=== PATIENT | female | born 1970 | race Caucasian/White ===

== ENCOUNTER 2022-04-01 13:52 | Observation (INO) ==
--- NOTE | 2022-04-01 14:10 | Emergency Department Note ---
Impression & Plan Elevated troponin I level, Atypical chest pain ED Provider Note NAME: JENNIFER GUSTAFSON AGE: 51 SEX: F : 1970 ARRIVES VIA: Ambulance INFORMANT: Patient, ED PROVIDER(S): Vinod Blount MD Chief Complaint: Chest pain HPI: Patient presents due to concern for chest pain that began at 1030 this morning. The patient states that it began to subside while in the ambulance just prior to arrival. Patient states it was centralized going down the left arm. Patient was recently admitted for an NSTEMI and did have a cardiac catheterization but did not require stenting. Patient states that that her ultrasound of the heart was also unremarkable with no concerning findings. Patient [place] any fevers chills. Patient states that the chest pain was slightly sharp. Patient did not take anything for it at home. Patient denies any alcohol tobacco or drug use. No leg swelling or calf pain. Patient denies any recent travel. No prior history of DVT or PE. Patient denies any shortness of breath. The patient did receive 4 baby aspirin as well as 3 nitros and she had improvement in her symptoms. Patient states that at its peak it was 6 out of 10 currently 1 out of 10 discomfort patient did take her morning medications. Patient did have a cardiac catheterization completed by Dr. Lincoln on March 28. Patient had stenosis not greater than 20% patient's echo from the same day showed EF of 60-65% with mild concentric left ventricular hypertrophy mild dilatation of the left atrium and no significant valvular path. Left ventricular wall motion was normal. Right RV systolic function was normal. ROS: See HPI for pertinent positives and negatives. A total of 10 systems were reviewed and otherwise negative. Past medical history: See below Surgical history: See below Social history: See below Physical Exam: GENERAL: NAD, wearing glasses, wearing a mask, non-toxic. EYE EXAM: Normal conjunctiva. PERRL, no anisocoria and EOM's grossly intact w/o pain. OROPHARYNX: Moist mucus membranes. Grossly normal dentition. NECK: Supple, no nuchal rigidity, no adenopathy, non-tender. No signs of meningismus. Chest: No reproducible chest wall pain LUNGS: Clear to auscultation. Normal chest wall mechanics. HEART: NSR, no MRG. ABDOMEN: Abdomen soft, non-tender, normo-active bowel sounds, no masses, no r ebound or guarding. BACK: No CVA TTP. SKIN: No rashes and no bruising. UPPER EXTREMITIES: Upper extremities are grossly normal. LOWER EXTREMITIES: Grossly normal, no edema. Negative Homans' sign bilaterally. NEURO EXAM: A&O x3, cranial nerves II-XII grossly intact, normal speech, moves all 4 extremities on command w/o issue. Differential diagnoses: Cardiac ischemia, aortic dissection, pulmonary embolism, pneumothorax, pneumonia, pericarditis, myocarditis, esophageal rupture, GERD, cholecystitis, pancreatitis, musculoskeletal, as well as other pathologies. Course: Patient was seen and evaluated the bedside. Full history physical exam was performed. EKG interpreted by me Normal sinus rhythm, rate of 68, normal intervals, normal axis, T wave version lead III. Patient's EKG does not appear grossly changed from comparison EKG March 28, 2022. Imaging Studies: See Below Cardiac monitoring: An order was placed for continuous cardiac monitoring. The monitor shows a rate of 69 with sinus rhythm. MDM: Patient was seen due to concern for chest pain. The patient was given Nitropaste and blood work was obtained. The patient's EKG does not look changed from her prior but the patient's chest pain had improved. Patient did have a D-dimer ordered. The patient has a normal white count H&H and platelet count. The patient's D-dimer was elevated at [address] angiography was ordered. The patient's initial troponin was 496. Given this abrupt change from her most recent troponin completed on March 28 I did speak with on-call cardiology Dr. Metcalf. He did state that he would come and evaluate the patient. After evaluation of the patient he stated he had reviewed the patient's prior cath imaging and does not think this is likely to be cardiac in nature. I did speak with the on-call hospitalist after obtaining the CTA results which are negative. The patient was admitted to the medicine service by Dr. Clark. Past Med/Surg History Medical History Chest pain Dyslipidemia HTN (hypertension) NSTEMI (non-ST elevated myocardial infarction) Social History Smoking Status: Former smoker Tobacco Type: Cigarettes Hx Alcohol Use: Yes Alcohol type: hard liquor Hx Substance Use: No Preferred Language: Scottish Communication Ability: Effective Seedling Sorter Required: No Beliefs That Will Affect Care: None Current Living Situation: Significant Other Feels Safe at Home: Yes Assistive Devices: Glasses Allergies Allergies Allergy/AdvReac Type Severity Reaction Status Date / Time Penicillins AdvReac Intermediate Rash Unverified 04/01/22 16:11 Home Meds Home Medications Medication Instructions Recorded Confirmed Probiotic Gummies 2 gummy PO QAM 03/28/22 04/01/22 cyanocobalamin (vitamin B-12) 1,000 mcg PO QAM 03/28/22 04/01/22 1,000 mcg tablet (Vitamin B-12) melatonin 3 mg tablet 3 mg PO QAM 03/28/22 04/01/22 sertraline 50 mg tablet 50 mg PO QAM 03/28/22 04/01/22 vitamin B complex 1 tab PO QAM 03/28/22 04/01/22 Previous Rx's Medication Instructions Recorded aspirin 81 mg tablet,delayed 81 mg PO QAM #30 tab 03/29/22 release atorvastatin 40 mg tablet 80 mg PO QAM #60 tab 03/29/22 clopidogrel 75 mg tablet 75 mg PO QAM #30 tab 03/29/22 lisinopril 2.5 mg tablet 2.5 mg PO QAM #30 tab 03/29/22 metoprolol succinate 25 mg 25 mg PO QAM #30 tab 03/29/22 tablet,extended release 24 hr Results & Data (ED) Vital Signs Vital Signs - 24 hr 04/01/22 14:15 04/01/22 14:20 04/01/22 16:14 Temperature 36.7 C Temperature Source Oral Pulse Rate 71 Pulse Rate [Right Finger] 56 L Respiratory Rate 21 20 Blood Pressure 176/86 H Blood Pressure [Right Arm] 139/87 Blood Pressure Mean 116 Blood Pressure Mean [Right Arm] 104 Pulse Oximetry 96 96 94 Oxygen Delivery Method Room Air Room Air Sepsis Recent Fever Within 48 Hours No Sepsis New/Unexplained Change in Mental Status N/A Sepsis Action Taken by Nursing No Action Required Home Medications Current Medication List: was personally reviewed by me Laboratory Data Attestation: I reviewed the patient's lab results. Result diagrams: 04/01/22 14:23 04/01/22 14:23 Lab Results 06/12/22 06/12/22 06/12/22 Range/Units 14:23 14:23 14:23 WBC 6.26 (4.8-10.8) K/uL RBC 4.39 (4.2-5.4) M/uL Hgb 13.1 (12.0-16.0) g/dL Hct 39.9 (37-47) % MCV 90.9 (80-100) fL MCH 29.8 (25-34) pg MCHC 32.8 (32-36) g/dL RDW Std Deviation 46.1 (36.4-46.3) fL RDW Coeff of Bakari 13.9 (11.5-14.5) % Plt Count 239 (130-400) K/uL MPV 10.7 H (7.4-10.4) fL Immature Gran % (Auto) 0.5 % Neut % (Auto) 73.2 % Lymph % (Auto) 17.6 % [place] % (Auto) 5.8 % Eos % (Auto) 2.6 % Baso % (Auto) 0.3 % Neut # (Auto) 4.59 (1.4-6.5) K/uL Lymph # (Auto) 1.10 L (1.2-3.4) K/uL [place] # (Auto) 0.36 (0.11-0.59) K/uL Eos # (Auto) 0.16 (0-0.5) K/uL Baso # (Auto) 0.02 (0-0.2) K/uL Immature Gran # (Auto) 0.03 H (0.00-0.02) K/uL D-Dimer 570 H* (0-500) ug/L FEU Sodium 138 (136-145) mmol/L Potassium 4.3 (3.5-5.1) mmol/L Chloride 105 (98-107) mmol/L Carbon Dioxide 26 (21-32) mmol/L Anion Gap 7 (3-11) BUN 15 (6-23) mg/dl Creatinine 0.62 (0.6-1.2) mg/dl Est Cr Clr Drug Dosing 159.1 ml/min Est GFR ( Amer) 122.7 ml/min Est GFR (Non-Af Amer) 105.9 ml/min BUN/Creatinine Ratio 24.2 H (10-20) Glucose 140 H (70-99(Fasting)) mg/dl Calcium 9.3 (8.5-10.1) mg/dl Total Bilirubin 1.4 H (0.2-1.0) mg/dl AST 25 (13-39) U/L ALT 23 (7-52) U/L Alkaline Phosphatase 93 (34-104) U/L Troponin I High Sens 496.9 H* D (0-14) pg/ml Total Protein 7.7 (6.0-8.3) gm/dl Albumin 4.1 (3.4-5.0) gm/dl Globulin 3.6 (2.5-4.0) gm/dl Albumin/Globulin Ratio 1.1 (0.9-2) Lipase 18 (11-82) U/L SARS-CoV-2, RNA, NAAT (NEGATIVE) 04/01/22 Range/Units 15:30 WBC (4.8-10.8) K/uL RBC (4.2-5.4) M/uL Hgb (12.0-16.0) g/dL Hct (37-47) % MCV (80-100) fL MCH (25-34) pg MCHC (32-36) g/dL RDW Std Deviation (36.4-46.3) fL RDW Coeff of Bakari (11.5-14.5) % Plt Count (130-400) K/uL MPV (7.4-10.4) fL Immature Gran % (Auto) % Neut % (Auto) % Lymph % (Auto) % [place] % (Auto) % Eos % (Auto) % Baso % (Auto) % Neut # (Auto) (1.4-6.5) K/uL Lymph # (Auto) (1.2-3.4) K/uL [place] # (Auto) (0.11-0.59) K/uL Eos # (Auto) (0-0.5) K/uL Baso # (Auto) (0-0.2) K/uL Immature Gran # (Auto) (0.00-0.02) K/uL D-Dimer (0-500) ug/L FEU Sodium (136-145) mmol/L Potassium (3.5-5.1) mmol/L Chloride (98-107) mmol/L Carbon Dioxide (21-32) mmol/L Anion Gap (3-11) BUN (6-23) mg/dl Creatinine (0.6-1.2) mg/dl Est Cr Clr Drug Dosing ml/min Est GFR ( Amer) ml/min Est GFR (Non-Af Amer) ml/min BUN/Creatinine Ratio (10-20) Glucose (70-99(Fasting)) mg/dl Calcium (8.5-10.1) mg/dl Total Bilirubin (0.2-1.0) mg/dl AST (13-39) U/L ALT (7-52) U/L Alkaline Phosphatase (34-104) U/L Troponin I High Sens (0-14) pg/ml Total Protein (6.0-8.3) gm/dl Albumin (3.4-5.0) gm/dl Globulin (2.5-4.0) gm/dl Albumin/Globulin Ratio (0.9-2) Lipase (11-82) U/L SARS-CoV-2, RNA, NAAT NEGATIVE (NEGATIVE) Administered Medications Discontinued Medications Ioversol (Optiray 320 125ml) 120 ml IV ONCE ONE Stop: 04/01/22 15:49 Last Admin: 04/01/22 15:49 Dose: 120 ml Documented by: [id number] Nitroglycerin (Nitroglycerin 2% Ointment 30gm Tube) 0.5 inch EXT NOW STA Stop: 04/01/22 14:20 Last Admin: 04/01/22 14:33 Dose: 0.5 inch Documented by: [id number] Imaging Data Radiologist's Impression: Chest X-Ray 04/01/22 14:19 XR chest 1V portable CLINICAL HISTORY: Chest Pain. COMPARISON STUDY: 03/28/2022 TECHNIQUE: 1 view of the chest FINDINGS: Single frontal view of the chest demonstrates the cardiomediastinal silhouette to be within normal limits. There is a decreased inspiratory effort with elevation of the hemidiaphragms and crowding of the bronchovascular markings at the lung bases and centrally. The lungs are clear of alveolar opacities. There is no evidence for pleural effusion. There is no evidence for vascular c ongestion. There is no acute osseous pathology. IMPRESSION: 1. There is a decreased inspiratory effort with otherwise no acute chest disease. ACT 112: Negative or not required by law. Electronically signed by: Ld Carias M.D. 04/01/2022 2:27 PM Chest CTA 04/01/22 14:50 CT angio chest PE protocol CLINICAL HISTORY: Shortness of breath and chest tightness COMPARISON STUDY: No previous studies for comparison. CT DOSE: 909.57 mGy.cm TECHNIQUE: CT Angio of the chest was performed.followed by image post processing with coronal, and sagittal MIP reformats. Contrast Volume: Optiray 320, 120 ml FINDINGS: Vasculature: There is homogeneous perfusion of the pulmonary vasculature bilaterally. No intraluminal filling defects or evidence for pulmonary embolus is seen. Airway: The airway is clear. No endobronchial lesion is identified. Lungs: The lungs are clear of acute alveolar opacities, air bronchograms or pulmonary nodules. Pleura: There is no evidence for pleural effusion. There is no evidence for pneumothorax. Mediastinum: There is no evidence for pathologic adenopathy. The heart size is within normal limits. The thoracic aorta is within normal limits. There is no evidence for pericardial effusion. Upper abdomen:The adrenal glands are normal bilaterally. Osseous structures: There is no acute osseous pathology. Impression: 1. No CTA evidence for pulmonary embolus. 2. No acute chest disease. ACT 112: Negative or not required by law. Electronically signed by: Ld Carias M.D. 04/01/2022 4:23 PM Discharge Plan Visit Data Chief Complaint: Chest Pain Stated Complaint: CHEST PAIN ED Provider: Vinod Blount Discharge Problem: Elevated troponin I level, Atypical chest pain Discharge Instructions Interventions: ED Discharge Assessment Last Done: 04/01/22 21:00
[2022-04-01] MEDS ORDERED: NITROGLYCERIN 2% OINTMENT 30GM TUBE EXT STA (14:19)
--- NOTE | 2022-04-01 14:29 | XRay Report ---
XR chest 1V portable CLINICAL HISTORY: Chest Pain. COMPARISON STUDY: 03/28/2022 TECHNIQUE: 1 view of the chest FINDINGS: Single frontal view of the chest demonstrates the cardiomediastinal silhouette to be within normal li mits. There is a decreased inspiratory effort with elevation of the hemidiaphragms and crowding of th e bronchovascular markings at the lung bases and centrally. The lungs are clear of alveolar opacities . There is no evidence for pleural effusion. There is no evidence for vascular congestion. There is n o acute osseous pathology. IMPRESSION: 1. There is a decreased inspiratory effort with otherwise no acute chest disease. ACT 112: Negative or not required by law. Electronically signed by: Ld Carias M.D. 04/01/2022 2:27 PM
[2022-04-01 14:42] LABS: Basophils # (auto) 0.02 K/uL (0-0.2); Basophils % (auto) 0.3 %; Eosinophils # (auto) 0.16 K/uL (0-0.5); Eosinophils % (auto) 2.6 %; Hematocrit (blood only) 39.9 % (37-47); Hemoglobin 13.1 g/dL (12.0-16.0); Immature Granulocytes # (auto) 0.03 K/uL (0.00-0.02); Immature Granulocytes % (auto) 0.5 %; Lymphocytes % (auto) 17.6 %; Mean Corpuscular Hemoglobin 29.8 pg (25-34); Mean Corpuscular Hgb Conc 32.8 g/dL (32-36); Mean Corpuscular Volume 90.9 fL (80-100); Mean Platelet Volume 10.7 fL (7.4-10.4); Monocytes # (auto) 0.36 K/uL (0.11-0.59); Monocytes % (auto) 5.8 %; Neutrophils # (auto) 4.59 K/uL (1.4-6.5); Neutrophils % (auto) 73.2 %; Platelet Count 239 K/uL (130-400); RDW Coefficient of Variation 13.9 % (11.5-14.5); RDW Standard Deviation 46.1 fL (36.4-46.3); Red Blood Count 4.39 M/uL (4.2-5.4); White Blood Count 6.26 K/uL (4.8-10.8)
[2022-04-01 14:49] LABS: D Dimer 570 ug/L FEU (0-500)
[2022-04-01 14:55] LABS: Albumin Globulin Ratio 1.1 (0.9-2); Albumin Level 4.1 gm/dl (3.4-5.0); BUN Creatinine Ratio 24.2 (10-20); Bilirubin,Total 1.4 mg/dl (0.2-1.0); Calcium 9.3 mg/dl (8.5-10.1); Creatinine Clr Calc Pharmacy 159.1 ml/min; Est GFR (African American) 122.7 ml/min; Est GFR (Non-African American) 105.9 ml/min; Globulin 3.6 gm/dl (2.5-4.0); Potassium 4.3 mmol/L (3.5-5.1); Total Protein 7.7 gm/dl (6.0-8.3)
[2022-04-01 15:02] LABS: Troponin I High Sensitivity 496.9 pg/ml (0-14)
--- NOTE | 2022-04-01 15:34 | Cardiology Consultation ---
Date of Consultation April 01, 2022 Assessment & Plan (1) Chest pain: (2) Dyslipidemia: (3) GERD (gastroesophageal reflux disease): I reviewed the cardiac catheterization myself from earlier in the week. I agree that she has widely patent coronary anatomy. Her EKG shows no acute changes that would suggest ongoing ischemia. Her chest pain is somewhat atypical and that is not related to exertion. She has been on dual antiplatelet therapy since discharge with Plavix and aspirin. Her PPI was discontinued because she was started on Plavix. She does have an elevated D-dimer and I believe the emergency department is going to obtain a CT of the chest to rule out pulmonary emboli which I think is appropriate. I cannot really explain why her high-sensitivity troponins have increased further but be aware that they are still a little bit on the lower side. If the patient is admitted we will be happy to follow along. History of Present Illness History of Present Illness This is a 51-year-old female who was here last week with chest pain and a borderline elevation in her high-sensitivity troponin. She underwent a cardiac catheterization that essentially shows widely patent coronary anatomy. She was discharged home on Plavix and taken off of her PPI. The patient was yesterday. The ceremony went well and she felt well and then this morning she got up and noted some chest discomfort that was nonradiating and not associated the shortness of breath. After arrival to the emergency department she was given sublingual nitroglycerin with some improvement in her symptoms. EKG shows no acute changes. Allergies Allergy/AdvReac Type Severity Reaction Status Date / Time Penicillins AdvReac Intermediate Rash Unverified 03/28/22 06:12 Home Medications Medication Instructions Recorded Confirmed Type Probiotic Gummies 2 gummy PO QAM 03/28/22 03/28/22 History cyanocobalamin (vitamin B-12) 0 mcg PO QAM 03/28/22 03/28/22 History 1,000 mcg tablet (Vitamin B-12) melatonin 3 mg tablet 3 mg PO QAM 03/28/22 03/28/22 History sertraline 50 mg tablet 50 mg PO QAM 03/28/22 03/28/22 History vitamin B complex 1 tab PO QAM 03/28/22 03/28/22 History aspirin 81 mg tablet,delayed 81 mg PO QAM #30 tab 03/29/22 Rx release atorvastatin 40 mg tablet 80 mg PO QAM #60 tab 03/29/22 Rx clopidogrel 75 mg tablet 75 mg PO QAM #30 tab 03/29/22 Rx lisinopril 2.5 mg tablet 2.5 mg PO QAM #30 tab 03/29/22 Rx metoprolol succinate 25 mg 25 mg PO QAM #30 tab 03/29/22 Rx tablet,extended release 24 hr Patient History Medical History Chest pain Dyslipidemia HTN (hypertension) NSTEMI (non-ST elevated myocardial infarction) Social History Smoking Status: Former smoker Tobacco Type: Cigarettes Hx Alcohol Use: Yes Alcohol type: hard liquor Hx Substance Use: No Preferred Language: Irish Communication Ability: Effective Hand I Thermal Cutter Required: No Beliefs That Will Affect Care: None Current Living Situation: Significant Other Feels Safe at Home: Yes Assistive Devices: Glasses Review of Systems Review of Systems: Review of Systems: See HPI for pertinent positives. All other 10 point review of systems are negative. Physical Exam Physical Exam: General: no acute distress and stated age Head: normocephalic, no masses, lesions, tenderness or abnormalities Eyes: conjunctiva are pink and non-injected, sclera clear Neck: supple, no adenopathy, no bruits, normal jugular venous pulse, no hepatojugular reflux Chest: normal shape and normal respiratory effort Lungs: clear to auscultation and percussion Cardiac Exam: - regular rate & rhythm, no murmurs gallops or rubs - normal S1, normal S2 Pulses: 2(+) throughout Abdomen: abdomen soft, non-tender, no abnormal masses and no hepatosplenomegaly Musculoskeletal: no gait disturbance, no joint inflammation, no deforming arthritis Extremities: no edema and no cyanosis Neuro: grossly normal exam Results & Data ([facility]) Vital Signs (Past 12 Hours) Vital Signs Temp Pulse Resp BP Pulse Ox 04/01/22 14:20 96 04/01/22 14:15 36.7 C 71 21 176/86 H 96 Laboratory Results Laboratory Results - last 24 hr 04/01/22 04/01/22 04/01/22 14:23 14:23 14:23 WBC 6.26 RBC 4.39 Hgb 13.1 Hct 39.9 MCV 90.9 MCH 29.8 MCHC 32.8 RDW Std Deviation 46.1 RDW Coeff of Bakari 13.9 Plt Count 239 MPV 10.7 H Immature Gran % (Auto) 0.5 Neut % (Auto) 73.2 Lymph % (Auto) 17.6 Gray % (Auto) 5.8 Eos % (Auto) 2.6 Baso % (Auto) 0.3 Neut # (Auto) 4.59 Lymph # (Auto) 1.10 L Gray # (Auto) 0.36 Eos # (Auto) 0.16 Baso # (Auto) 0.02 Immature Gran # (Auto) 0.03 H D-Dimer 570 H* Sodium 138 Potassium 4.3 Chloride 105 Carbon Dioxide 26 Anion Gap 7 BUN 15 Creatinine 0.62 Est Cr Clr Drug Dosing 159.1 Est GFR ( Amer) 122.7 Est GFR (Non-Af Amer) 105.9 BUN/Creatinine Ratio 24.2 H Glucose 140 H Calcium 9.3 Total Bilirubin 1.4 H AST 25 ALT 23 Alkaline Phosphatase 93 Troponin I High Sens 496.9 H* D Total Protein 7.7 Albumin 4.1 Globulin 3.6 Albumin/Globulin Ratio 1.1 Lipase 18 Medications Administered Medications Probiotic Gummies 2 gummy PO QAM 03/28/22 [History Confirmed 03/28/22] cyanocobalamin (vitamin B-12) 1,000 mcg tablet (Vitamin B-12) 0 mcg PO QAM 03/28/22 [History Confirmed 03/28/22] melatonin 3 mg tablet 3 mg PO QAM 03/28/22 [History Confirmed 03/28/22] sertraline 50 mg tablet 50 mg PO QAM 03/28/22 [History Confirmed 03/28/22] vitamin B complex 1 tab PO QAM 03/28/22 [History Confirmed 03/28/22] aspirin 81 mg tablet,delayed release 81 mg PO QAM #30 tab 03/29/22 [Rx] atorvastatin 40 mg tablet 80 mg PO QAM #60 tab 03/29/22 [Rx] clopidogrel 75 mg tablet 75 mg PO QAM #30 tab 03/29/22 [Rx] lisinopril 2.5 mg tablet 2.5 mg PO QAM #30 tab 03/29/22 [Rx] metoprolol succinate 25 mg tablet,extended release 24 hr 25 mg PO QAM #30 tab 03/29/22 [Rx]
[2022-04-01] MEDS ORDERED: OPTIRAY 320 125ml IV ONE (15:48)
--- NOTE | 2022-04-01 16:25 | CT Scan Report ---
CT angio chest PE protocol CLINICAL HISTORY: Shortness of breath and chest tightness COMPARISON STUDY: No previous studies for comparison. CT DOSE: 909.57 mGy.cm TECHNIQUE: CT Angio of the chest was performed.followed by image post processing with coronal, and s agittal MIP reformats. Contrast Volume: Optiray 320, 120 ml FINDINGS: Vasculature: There is homogeneous perfusion of the pulmonary vasculature bilaterally. No intraluminal filling defects or evidence for pulmonary embolus is seen. Airway: The airway is clear. No endobronchial lesion is identified. Lungs: The lungs are clear of acute alveolar opacities, air bronchograms or pulmonary nodules. Pleura: There is no evidence for pleural effusion. There is no evidence for pneumothorax. Mediastinum: There is no evidence for pathologic adenopathy. The heart size is within normal limits. The thoracic aorta is within normal limits. There is no evidence for pericardial effusion. Upper abdomen:The adrenal glands are normal bilaterally. Osseous structures: There is no acute osseous pathology. Impression: 1. No CTA evidence for pulmonary embolus. 2. No acute chest disease. ACT 112: Negative or not required by law. Electronically signed by: Ld Carias M.D. 04/01/2022 4:23 PM
--- NOTE | 2022-04-01 17:17 | History & Physical Report ---
Date of Service April 01, 2022 Assessment & Plan (1) Chest pain: Plan: Chest pain Currently resolved Was managed for recent NSTEMI and Cardiac cath did not show any significant CAD Troponin elevated. This could still be due to recent cardiac catheterization as the ones from 03/28/22 were prior to cardiac catheterization Will trend for now and monitor CT PE did not show any PE Continue dual antiplatelet therapy, atorvastatin, lisinopril (2) GERD (gastroesophageal reflux disease): Plan: Patient's PPI was discontinued on discharge last time due to traction with Plavix. Will start famotidine. (3) Dyslipidemia: Plan: Continue atorvastatin (4) Prediabetes: Plan: A1c was 5.7 in January 2022 Carb controlled diet DVT prophylaxis Heparin subcu History of Present Illness Chief Complaint: Chest pain Primary Care Provider: Evon Villeda DO 51-year-old woman with history of hypertension, hyperlipidemia, mood disorder, GERD, prediabetes, MAXIMO on CPAP who presented with chest pain that started this morning. Patient was recently hospitalized for chest pain and had a cardiac catheterization on 03/28/2022 and discharged 3 days ago. Patient had her wedding yesterday. Reported chest pain that started about 10 AM this morning which she described as sharp pain left-sided not referred. Started when she was cleaning her pet. Reported that pain persisted until presentation to the ER and resolved after getting nitro. At time of my evaluation, chest pain is completely resolved. Denies any headache, dizziness, cough, shortness of breath, palpitations, nausea, vomiting, abdominal pain, diarrhea, constipation, dysuria, frequency, urgency, incontinence, fevers, chills. Allergies Allergy/AdvReac Type Severity Reaction Status Date / Time Penicillins AdvReac Intermediate Rash Unverified 04/01/22 16:11 Home Medications Medication Instructions Recorded Confirmed Type Probiotic Gummies 2 gummy PO QAM 03/28/22 04/01/22 History cyanocobalamin (vitamin B-12) 1,000 mcg PO QAM 03/28/22 04/01/22 History 1,000 mcg tablet (Vitamin B-12) melatonin 3 mg tablet 3 mg PO QAM 03/28/22 04/01/22 History sertraline 50 mg tablet 50 mg PO QAM 03/28/22 04/01/22 History vitamin B complex 1 tab PO QAM 03/28/22 04/01/22 History aspirin 81 mg tablet,delayed 81 mg PO QAM #30 tab 03/29/22 04/01/22 Rx release atorvastatin 40 mg tablet 80 mg PO QAM #60 tab 03/29/22 04/01/22 Rx clopidogrel 75 mg tablet 75 mg PO QAM #30 tab 03/29/22 04/01/22 Rx lisinopril 2.5 mg tablet 2.5 mg PO QAM #30 tab 03/29/22 04/01/22 Rx metoprolol succinate 25 mg 25 mg PO QAM #30 tab 03/29/22 04/01/22 Rx tablet,extended release 24 hr Past Med/Surg History Medical History Chest pain Dyslipidemia HTN (hypertension) NSTEMI (non-ST elevated myocardial infarction) Social History Smoking Status: Former smoker Tobacco Type: Cigarettes Hx Alcohol Use: Yes Alcohol type: hard liquor Hx Substance Use: No Preferred Language: Citizen Of [place] Communication Ability: Effective Fire Support Man Required: No Beliefs That Will Affect Care: None Current Living Situation: Significant Other Feels Safe at Home: Yes Assistive Devices: Glasses Review of Systems Review of Systems: All systems reviewed & are unremarkable except as noted in HPI & below Physical Exam Constitutional: + well hydrated and + obese; no acute distress Eyes: PERRL, conjunctivae normal, anicteric sclerae ENMT: external ear and nose normal, oropharynx normal Respiratory: normal respiratory effort, lungs clear to auscultation Cardiovascular: RRR, no murmur, no edema Gastrointestinal (Abdomen): normal bowel sounds, soft, nontender, no hepatosplenomegaly Musculoskeletal: no cyanosis or clubbing, extremities motor strength 5/5 Neurologic: PERRL, EOMI, accommodation nl, no face palsy, no dysarthria Psychiatric: A+Ox3, euthymic affect Results & Data Results & Data ([facility]) Vital Signs (Past 12 Hours) Vital Signs Temp Pulse Pulse Resp BP BP Pulse Ox 04/01/22 16:14 56 L 20 139/87 94 04/01/22 14:20 96 04/01/22 14:15 36.7 C 71 21 176/86 H 96 Laboratory Results Abnormal lab results 04/01/22 04/01/22 04/01/22 Range/Units 14:23 14:23 14:23 MPV 10.7 H (7.4-10.4) fL Lymph # (Auto) 1.10 L (1.2-3.4) K/uL Immature Gran # (Auto) 0.03 H (0.00-0.02) K/uL D-Dimer 570 H* (0-500) ug/L FEU BUN/Creatinine Ratio 24.2 H (10-20) Glucose 140 H (70-99(Fasting)) mg/dl Total Bilirubin 1.4 H (0.2-1.0) mg/dl Troponin I High Sens 496.9 H* D (0-14) pg/ml
--- NOTE | 2022-04-01 17:37 | Electrocardiogram Report ---
Test Reason : Blood Pressure : / mmHG Vent. Rate : 068 BPM Atrial Rate : 068 BPM P-R Int : 190 ms QRS Dur : 094 ms QT Int : 438 ms P-R-T Axes : 038 -01 021 degrees QTc Int : 465 ms Normal sinus rhythm Minimal voltage criteria for LVH, may be normal variant Abnormal ECG When compared with ECG of 28-MAR-2022 04:05, No significant change was found Confirmed by Poncho Basurto ([id number]) on 04/01/2022 5:36:37 PM Referred By: Confirmed By:Chirag Basurto
[2022-04-01] MEDS ORDERED: ACETAMINOPHEN 325 MG TAB PO PRN (20:36)
[2022-04-01] MEDS ORDERED: MELATONIN 3 MG TAB PO PRN (20:36)
[2022-04-01] MEDS ORDERED: Heparin IV Adult Wt-Based Standard WITH Bolus Protocol IV SCH (21:53)
[2022-04-01] MEDS ORDERED: HEPARIN SOD (PORCINE) 1000 UNIT/ML IV ONE (22:15)
[2022-04-01] MEDS: HEPARIN SODIUM/DEXTROSE 25,000 UNITS/500 ML BAG IV SCH (22:33)
[2022-04-02 04:01] LABS: Hematocrit (blood only) 38.6 % (37-47); Hemoglobin 12.8 g/dL (12.0-16.0); Mean Corpuscular Hemoglobin 30.1 pg (25-34); Mean Corpuscular Hgb Conc 33.2 g/dL (32-36); Mean Corpuscular Volume 90.8 fL (80-100); Mean Platelet Volume 10.5 fL (7.4-10.4); Platelet Count 209 K/uL (130-400); RDW Coefficient of Variation 13.6 % (11.5-14.5); RDW Standard Deviation 45.3 fL (36.4-46.3); Red Blood Count 4.25 M/uL (4.2-5.4); White Blood Count 6.92 K/uL (4.8-10.8)
[2022-04-02 04:27] LABS: BUN Creatinine Ratio 20.3 (10-20); Creatinine Clr Calc Pharmacy 153.6 ml/min; Est GFR (African American) 121.4 ml/min; Est GFR (Non-African American) 104.8 ml/min; Potassium 3.9 mmol/L (3.5-5.1)
[2022-04-02 04:32] LABS: Troponin I High Sensitivity 1531.7 pg/ml (0-14)
[2022-04-02 04:33] LABS: Partial Thromboplastin Ratio 1.9
[2022-04-02 04:46] LABS: Partial Thromboplastin Time 52.9 Seconds (21.0-31.0)
[2022-04-02] MEDS ORDERED: ENOXAPARIN 80 MG/0.8 ML SYR SQ SCH (09:00)
[2022-04-02] MEDS ORDERED: [UNRECOGNIZED DRUG - OTHER] PO SCH (09:00)
[2022-04-02] MEDS ORDERED: CYANOCOBALAMIN (B-12) 500 MCG TABLET PO SCH (09:00)
[2022-04-02] MEDS: METOPROLOL SUCC 25MG EXT REL TAB PO SCH (10:23)
[2022-04-02] MEDS: ATORVASTATIN 40 MG TAB PO SCH (10:23)
[2022-04-02] MEDS: ASPIRIN 81 MG ECTAB PO SCH (10:23)
[2022-04-02] MEDS: VITAMIN B COMPLEX TAB PO SCH (10:24)
[2022-04-02] MEDS: SERTRALINE HCL 50 MG TABLET PO SCH (10:24)
[2022-04-02] MEDS: lisinopril 2.5 MG TAB PO SCH (10:24)
[2022-04-02] MEDS: CLOPIDOGREL BISULFATE 75 MG TAB PO SCH (10:24)
--- NOTE | 2022-04-02 11:18 | Cardiology Progress Note ---
Date of Service April 02, 2022 Assessment & Plan (1) Chest pain: (2) Elevated troponin: (3) Coronary vasospasm: (4) HTN, goal below 140/80: (5) GERD (gastroesophageal reflux disease): Plan: Ongoing chest pain and significantly elevated troponin despite widely patent coronary anatomy per cardiac catheterization on 03/28. EKG without acute changes that would suggest ischemia. T wave inversion in lead III noted however this can be a normal variant. -Continue dual antiplatelet therapy with aspirin and Plavix -We will repeat a limited echo to reassess LV systolic function and screen for stress-induced cardiomyopathy, patient will remain n.p.o. until results are reviewed - ? Questionable coronary vasospasm, blood pressures have been elevated, this will give us room to add amlodipine 5 mg daily. -Continue metoprolol and lisinopril as ordered -Given ongoing symptoms patient would be a good candidate for cardiac MRI, will consider as an -Patient is experiencing GERD symptoms, PPI restarted, pantoprazole 40 mg daily. Admission and Anticipated Discharge Date Admission Date: April 01, 2022 Subjective 51-year-old female who initially presented to the ED last week due to chest pain. She ultimately underwent a cardiac catheterization on 03/[address] Vizcaino showing widely patent coronary anatomy. She was discharged home on DAPT with aspirin and Plavix. She was taken off of her PPI. Notes that she has been under some stress recently- She was yesterday. The ceremony went well and she felt well and then this morning she got up and noted some chest discomfort with some left forearm pain. Not associated the shortness of breath or diaphoresis. After arrival to the emergency department she was given sublingual nitroglycerin with some improvement in her symptoms. EKG shows no acute changes. D-Dimer : 570, CT of the chest negative for PE Troponin: 469.9>>2176.4>>1531.7 Upon entrance into the room patient was resting comfortably in bed without any complaints of chest pain or shortness of breath. Will occasionally feel some palpitations. Denies any dizziness or syncope. No diaphoresis. Has been not icing some reflux-like symptoms which she believes is different than her chest pain symptoms. Tele: 60-70s Review of Systems Review of Systems: All systems reviewed & are unremarkable except as noted in HPI & below Physical Exam Constitutional: WD/WN, vitals as above Eyes: PERRL, conjunctivae normal, anicteric sclerae ENMT: external ear and nose normal, oropharynx normal Neck: normal visual inspection and trachea midline Respiratory: normal respiratory effort, lungs clear to auscultation Auscultation: no rales, no rhonchi and no wheezes Cardiovascular: RRR, no murmur, no edema Vessels: no JVD Gastrointestinal (Abdomen): normal bowel sounds, soft, nontender, no hepatosplenomegaly Skin: no rashes, warm and dry Neurologic: PERRL, EOMI, accommodation nl, no face palsy, no dysarthria Psychiatric: A+Ox3, euthymic affect Results & Data ([facility]) Vital Signs (Past 12 Hours) Vital Signs Temp Pulse Pulse Resp BP Pulse Ox 04/02/22 09:06 36.5 C 70 20 163/92 H 93 04/02/22 08:41 76 04/02/22 07:41 36.6 C 70 16 144/67 H 93 04/02/22 03:32 62 16 153/66 H 95 Laboratory Results Cardiac Enzymes 04/01/22 04/01/22 04/02/22 Range/Units 14:23 20:54 03:50 AST 25 (13-39) U/L Troponin I High Sens 496.9 H* D 2176.4 H* D 1531.7 H* D (0-14) pg/ml Coagulation 04/02/22 Range/Units 03:50 APTT 52.9 H* (21.0-31.0) Seconds CBC 04/01/22 04/02/22 Range/Units 14:23 03:50 WBC 6.26 6.92 (4.8-10.8) K/uL RBC 4.39 4.25 (4.2-5.4) M/uL Hgb 13.1 12.8 (12.0-16.0) g/dL Hct 39.9 38.6 (37-47) % Plt Count 239 209 (130-400) K/uL Neut # (Auto) 4.59 (1.4-6.5) K/uL Lymph # (Auto) 1.10 L (1.2-3.4) K/uL [place] # (Auto) 0.36 (0.11-0.59) K/uL Eos # (Auto) 0.16 (0-0.5) K/uL Baso # (Auto) 0.02 (0-0.2) K/uL Comprehensive Metabolic Panel 04/01/22 04/02/22 Range/Units 14:23 03:50 Sodium 138 138 (136-145) mmol/L Potassium 4.3 3.9 (3.5-5.1) mmol/L Chloride 105 105 (98-107) mmol/L Carbon Dioxide 26 26 (21-32) mmol/L BUN 15 13 (6-23) mg/dl Creatinine 0.62 0.64 (0.6-1.2) mg/dl Glucose 140 H 101 H (70-99(Fasting)) mg/dl Calcium 9.3 9.0 (8.5-10.1) mg/dl AST 25 (13-39) U/L ALT 23 (7-52) U/L Alkaline Phosphatase 93 (34-104) U/L Total Protein 7.7 (6.0-8.3) gm/dl Albumin 4.1 (3.4-5.0) gm/dl Intake and Output 04/01/22 04/02/22 04/02/22 22:59 06:59 14:59 Other: Weight 126 kg Weight Measurement Method Built in [facility]
--- NOTE | 2022-04-02 12:30 | Hospitalist Progress Note ---
Date of Service April 02, 2022 Assessment & Plan (1) Chest pain: Plan: Chest pain Currently resolved Was managed for recent NSTEMI and Cardiac cath on 03/28/22 did not show any significant CAD DDimer elevated CT PE did not show any PE Trop went from 498 on admission to 2176 and then 1531 Possible NSTEMI. ?plaque rupture or coronary vasospasm Continue heparin drip for now Will defer to Cardiology for plans Continue dual antiplatelet therapy, atorvastatin, lisinopril (2) GERD (gastroesophageal reflux disease): Plan: PPI resumed per cards (3) Dyslipidemia: Plan: Continue atorvastatin (4) Prediabetes: Plan: A1c was 5.7 in January 2022 DVT ppx- hep Admission and Anticipated Discharge Date Admission Date: April 01, 2022 Subjective Seen and examined. Has been chest pain-free since admission. However, troponin went up from 496 on admission to 2176 overnight and was started on heparin drip. Patient currently denies chest pain, cough, shortness of breath Denies any nausea, vomiting, abdominal pain, diarrhea, constipation Denies dysuria, frequency, urgency, fevers or chills Physical Exam Constitutional: + well hydrated and + obese; no acute distress Eyes: PERRL, conjunctivae normal, anicteric sclerae ENMT: external ear and nose normal, oropharynx normal Respiratory: normal respiratory effort, lungs clear to auscultation Cardiovascular: RRR, no murmur, no edema Gastrointestinal (Abdomen): normal bowel sounds, soft, nontender, no hepatosplenomegaly Musculoskeletal: no cyanosis or clubbing, extremities motor strength 5/5 Neurologic: PERRL, EOMI, accommodation nl, no face palsy, no dysarthria Psychiatric: A+Ox3, euthymic affect Results & Data Results & Data ([facility]) Vital Signs (Past 12 Hours) Vital Signs Temp Pulse Pulse Resp BP Pulse Ox 04/02/22 09:06 36.5 C 70 20 163/92 H 93 04/02/22 08:41 76 04/02/22 07:41 36.6 C 70 16 144/67 H 93 04/02/22 03:32 62 16 153/66 H 95 Laboratory Results Abnormal lab results 04/01/22 04/01/22 04/01/22 Range/Units 14:23 14:23 14:23 MPV 10.7 H (7.4-10.4) fL Lymph # (Auto) 1.10 L (1.2-3.4) K/uL Immature Gran # (Auto) 0.03 H (0.00-0.02) K/uL APTT (21.0-31.0) Seconds D-Dimer 570 H* (0-500) ug/L FEU BUN/Creatinine Ratio 24.2 H (10-20) Glucose 140 H (70-99(Fasting)) mg/dl Total Bilirubin 1.4 H (0.2-1.0) mg/dl Troponin I High Sens 496.9 H* D (0-14) pg/ml 04/01/22 04/02/22 04/02/22 Range/Units 20:54 03:50 03:50 MPV (7.4-10.4) fL Lymph # (Auto) (1.2-3.4) K/uL Immature Gran # (Auto) (0.00-0.02) K/uL APTT 52.9 H* (21.0-31.0) Seconds D-Dimer (0-500) ug/L FEU BUN/Creatinine Ratio 20.3 H (10-20) Glucose 101 H (70-99(Fasting)) mg/dl Total Bilirubin (0.2-1.0) mg/dl Troponin I High Sens 2176.4 H* D 1531.7 H* D (0-14) pg/ml 04/02/22 Range/Units 03:50 MPV 10.5 H (7.4-10.4) fL Lymph # (Auto) (1.2-3.4) K/uL Immature Gran # (Auto) (0.00-0.02) K/uL APTT (21.0-31.0) Seconds D-Dimer (0-500) ug/L FEU BUN/Creatinine Ratio (10-20) Glucose (70-99(Fasting)) mg/dl Total Bilirubin (0.2-1.0) mg/dl Troponin I High Sens (0-14) pg/ml
[2022-04-02] MEDS ORDERED: FAMOTIDINE 20 MG TAB PO SCH (12:45)
[2022-04-02] MEDS: amLODIPine BESYLATE 5 MG TAB PO SCH (13:39)
[2022-04-02] MEDS: PANTOprazole 40 MG TAB PO SCH (13:40)
[2022-04-02] MEDS: HEPARIN SODIUM/DEXTROSE 25,000 UNITS/500 ML BAG IV SCH (14:19)
[2022-04-03] MEDS: HEPARIN SODIUM/DEXTROSE 25,000 UNITS/500 ML BAG IV SCH (06:13)
[2022-04-03 07:24] LABS: Partial Thromboplastin Ratio 1.7
[2022-04-03 07:29] LABS: Partial Thromboplastin Time 47.5 Seconds (21.0-31.0)
--- NOTE | 2022-04-03 07:53 | Cardiology Progress Note ---
Date of Service April 03, 2022 Assessment & Plan (1) Chest pain: (2) Elevated troponin: (3) Coronary vasospasm: (4) HTN, goal below 140/80: (5) GERD (gastroesophageal reflux disease): Plan: 51-year-old female with ongoing chest pain and significantly elevated troponin despite widely patent coronary anatomy per cardiac catheterization on 03/28. EKG without acute changes that would suggest ischemia. T wave inversion in lead III noted however this can be a normal variant. Repeat limited echo stable without any new wall motion abnormalities. -Continue dual antiplatelet therapy with aspirin and Plavix - ? Questionable coronary vasospasm-continue amlodipine 5 mg daily at discharge - ? Catecholamine cardiomyopathy vs myocarditis ? -Given ongoing symptoms patient would be a good candidate for cardiac MRI, will consider as an outpatient -Continue metoprolol and lisinopril as ordered -Patient is experiencing GERD symptoms, PPI restarted, continue pantoprazole 40 mg daily- follow up with GI as an outpatient. Case discussed with Dr. Wallace. Opal to discuss continue IV heparin drip. Joseph from a cardiac standpoint for discharge. Patient scheduled to see Dr. Vizcaino in office on 04/05. She should keep this appointment as scheduled. Admission and Anticipated Discharge Date Admission Date: April 01, 2022 Supervising Physician Co-Signing Physician Notes Patient was seen and personally examined. Recurrent chest pain with elevated troponin despite essentially normal coronary angiography suspect coronary spasm versus microvascular disease. Patient now on calcium channel norma as appropriate. Okay to discontinue heparin and discharged home today Subjective 51-year-old female who initially presented to the ED last week due to chest pain. She ultimately underwent a cardiac catheterization on 03/[address] Vizcaino showing widely patent coronary anatomy. She was discharged home on DAPT with aspirin and Plavix. She was taken off of her PPI. Notes that she has been under some stress recently- She was yesterday. The ceremony went well and she felt well and then this morning she got up and noted some chest discomfort with some left forearm pain. Not associated the shortness of breath or diaphoresis. After arrival to the emergency department she was given sublingual nitroglycerin with some improvement in her symptoms. EKG shows no acute changes. Patient was experiencing GERD symptoms and Protonix was started 04/02. D-Dimer : 570, CT of the chest negative for PE Troponin: 469.9>>2176.4>>1531.7 Chart and telemetry reviewed. Patient seen and examined at bedside. Upon entrance into the room patient was resting comfortably in bed. Denied any acute concerns. No further episodes of chest discomfort. No shortness of breath, palpitations, dizziness or syncope. No diaphoresis. No palpitations. Reflux symptoms have resolved. Tele: SR 60-80s. Review of Systems Review of Systems: All systems reviewed & are unremarkable except as noted in HPI & below Physical Exam Constitutional: WD/WN, vitals as above Eyes: PERRL, conjunctivae normal, anicteric sclerae ENMT: external ear and nose normal, oropharynx normal Neck: normal visual inspection and trachea midline Respiratory: normal respiratory effort, lungs clear to auscultation Auscultation: no rales, no rhonchi and no wheezes Cardiovascular: RRR, no murmur, no edema Vessels: no JVD Gastrointestinal (Abdomen): normal bowel sounds, soft, nontender, no hepatosplenomegaly Skin: no rashes, warm and dry Neurologic: PERRL, EOMI, accommodation nl, no face palsy, no dysarthria Psychiatric: A+Ox3, euthymic affect Results & Data ([facility]) Vital Signs (Past 12 Hours) Vital Signs Temp Pulse Pulse Resp BP BP Pulse Ox 04/03/22 03:52 36.6 C 61 18 112/64 97 04/02/22 23:50 36.7 C 66 18 144/85 H 97 04/02/22 22:17 67 Laboratory Results Coagulation 04/03/22 Range/Units 06:15 APTT 47.5 H* (21.0-31.0) Seconds Intake and Output 04/02/22 04/03/22 04/03/22 22:59 06:59 14:59 Intake Total 871.8 / 2280.0 548.2 / 2280.0 187.55 / 187.55 Balance 871.8 / 1230.0 548.2 / 1230.0 187.55 / 187.55 Intake: IV 151.8 / 1000.0 348.2 / 1000.0 187.55 / 187.55 Heparin Sodium/Dextrose 25,000 151.8 / 1000.0 348.2 / 1000.0 187.55 / 187.55 units In 500 ml @ 1,650 UNITS/ HR 33 mls/hr IV .[id number] [facility] Rx #:[id number] Oral 720 / 1280 200 / 1280 Other: Weight 121.7 kg 121.7 kg Weight Measurement Method Standing Scale Patient Weight 04/04/22 06:59 Weight 121.7 kg
[2022-04-03] MEDS: ATORVASTATIN 40 MG TAB PO SCH (08:48)
[2022-04-03] MEDS: METOPROLOL SUCC 25MG EXT REL TAB PO SCH (08:48)
[2022-04-03] MEDS: amLODIPine BESYLATE 5 MG TAB PO SCH (08:48)
[2022-04-03] MEDS: SERTRALINE HCL 50 MG TABLET PO SCH (08:49)
[2022-04-03] MEDS: CLOPIDOGREL BISULFATE 75 MG TAB PO SCH (08:49)
[2022-04-03] MEDS: ASPIRIN 81 MG ECTAB PO SCH (08:50)
[2022-04-03] MEDS: PANTOprazole 40 MG TAB PO SCH (08:50)
[2022-04-03] MEDS: lisinopril 2.5 MG TAB PO SCH (08:50)
[2022-04-03] MEDS: VITAMIN B COMPLEX TAB PO SCH (08:50)
--- NOTE | 2022-04-03 11:24 | Discharge Summary ---
Date of Service April 03, 2022 Admission HPI Per Admitting Provider 51-year-old woman with history of hypertension, hyperlipidemia, mood disorder, GERD, prediabetes, MAXIMO on CPAP who presented with chest pain that started this morning. Patient was recently hospitalized for chest pain and had a cardiac catheterization on 03/28/2022 and discharged 3 days ago. Patient had her wedding yesterday. Reported chest pain that started about 10 AM this morning which she described as sharp pain left-sided not referred. Started when she was cleaning her pet. Reported that pain persisted until presentation to the ER and resolved after getting nitro. At time of my evaluation, chest pain is completely resolved. Denies any headache, dizziness, cough, shortness of breath, palpitations, nausea, vomiting, abdominal pain, diarrhea, constipation, dysuria, frequency, urgency, incontinence, fevers, chills. Admission Exam Per Admitting Provider Constitutional: + well hydrated and + obese; no acute di stress Eyes: PERRL, conjunctivae normal, anicteric sclerae ENMT: external ear and nose normal, oropharynx normal Respiratory: normal respiratory effort, lungs clear to auscultation Cardiovascular: RRR, no murmur, no edema Gastrointestinal (Abdomen): normal bowel sounds, soft, nontender, no hepatosplenomegaly Musculoskeletal: no cyanosis or clubbing, extremities motor strength 5/5 Neurologic: PERRL, EOMI, accommodation nl, no face palsy, no dysarthria Psychiatric: A+Ox3, euthymic affect Principal Diagnosis Chest pain Coronary versus spasm versus microvascular disease Discharge Exam Constitutional + well hydrated and + obese; no acute distress Eyes PERRL, conjunctivae normal, anicteric sclerae ENMT external ear and nose normal, oropharynx normal Respiratory normal respiratory effort, lungs clear to auscultation Cardiovascular RRR, no murmur, no edema Gastrointestinal (Abdomen) normal bowel sounds, soft, nontender, no hepatosplenomegaly Musculoskeletal no cyanosis or clubbing, extremities motor strength 5/5 Neurologic PERRL, EOMI, accommodation nl, no face palsy, no dysarthria Psychiatric A+Ox3, euthymic affect Discharge Data Allergies Allergy/AdvReac Type Severity Reaction Status Date / Time Penicillins AdvReac Intermediate Rash Unverified 04/02/22 07:54 Consultations 04/01/22 16:44 ED Decision to Admit Stat 04/02/22 10:07 Consult Cardiology Routine Ordered Studies 04/01/22 14:50 CT angio chest PE protocol Stat Vasculature: There is homogeneous perfusion of the pulmonary vasculature bilaterally. No intraluminal filling defects or evidence for pulmonary embolus is seen. Airway: The airway is clear. No endobronchial lesion is identified. Lungs: The lungs are clear of acute alveolar opacities, air bronchograms or pulmonary nodules. Pleura: There is no evidence for pleural effusion. There is no evidence for pneumothorax. Mediastinum: There is no evidence for pathologic adenopathy. The heart size is within normal limits. The thoracic aorta is within normal limits. There is no evidence for pericardial effusion. Upper abdomen:The adrenal glands are normal bilaterally. Osseous structures: There is no acute osseous pathology. Impression: 1. No CTA evidence for pulmonary embolus. 2. No acute chest disease. Hospital Course (1) Chest pain: Chest pain Currently resolved Was managed for recent NSTEMI and Cardiac cath on 03/28/22 did not show any significant CAD DDimer elevated CT PE did not show any PE Trop went from 498 on admission to 2176 and then 1531 Was on heparin drip Discussed with Cardiology. Thought to be possible coronary vasospasm vs microvascular disease Was started on amlodipine Continue dual antiplatelet therapy, atorvastatin, lisinopril (2) GERD (gastroesophageal reflux disease): PPI resumed per cardiology (3) Dyslipidemia: Continue atorvastatin (4) Prediabetes: A1c was 5.7 in January 2022 Total Time Total Time Spent Total Time Spent (In Minutes): 40 Total Time Includes: Examination of the Patient, Discharge Planning, Medication Reconciliation and Communication With Other Providers Discharge Plan Discharge Items Patient Disposition: Home - Self-Care Reason For Visit: CHEST PAIN Discharge Diagnosis: Chest pain Activity: Resume your previous activity Non-emergency contact: Primary Care Provider and Assistance Coordinator Call non-emergency contact if: you have any medication questions and your symptoms worsen Follow-up/Referrals: Daniel Vizcaino DO [Assistance Coordinator] - (Date & Time 04/05/2022 11:00 AM Provider Daniel Vizcaino DO Department Cardiology, [facility] ) Evon Villeda DO [Primary Care Provider] - (Date & Time 04/04/2022 11:10 AM Provider Evon Villeda DO Department Family Medicine [facility] Diet: Heart Healthy, Low Fat and Low Sodium (2gm) Addtl Attending Provider Instructions: Mrs Cardenas You came to the hospital due to recurrence of chest pain. You were reevaluated by Cardiology. Amlodipine was started. You were monitored in the hospital and had an Echocardiogram Your chest pain is resolved. You are being discharged home. Please ensure follow up with your Primary Doctor and Cardiology. It was a pleasure taking care of you. Stand-Alone Forms: My [facility], Smoking Cessation Medications and DC Order Prescriptions: New amlodipine [Norvasc] 5 mg Tablet 5 mg PO QAM Qty: 30 RF: 0 pantoprazole 40 mg Tablet,Delayed Release (Dr/Ec) 40 mg PO QAM Qty: 30 RF: 0 Continued cyanocobalamin (vitamin B-12) [Vitamin B-12] 1,000 mcg Tablet 1,000 mcg PO QAM RF: 0 melatonin 3 mg Tablet 3 mg PO QAM RF: 0 vitamin B complex Tablet 1 tab PO QAM RF: 0 sertraline 50 mg tablet 50 mg PO QAM RF: 0 Probiotic Gummies 2 gummy PO QAM RF: 0 atorvastatin 40 mg Tablet 80 mg PO QAM Qty: 60 RF: 0 clopidogrel 75 mg Tablet 75 mg PO QAM Qty: 30 RF: 0 aspirin 81 mg Tablet,Delayed Release (Dr/Ec) 81 mg PO QAM Qty: 30 RF: 0 metoprolol succinate 25 mg Tablet Extended Release 24 Hr 25 mg PO QAM Qty: 30 RF: 0 lisinopril 2.5 mg Tablet 2.5 mg PO QAM Qty: 30 RF: 0 Discharge Orders: Discharge Order (Routine); Ordered 04/03/22 Ordered By: Destinee Clark Admission Data Admit Date/Time: 04/01/22 17:28 Attending Provider: Destinee Clark I. Admit Provider: Destinee Clark I. Primary Care Provider: Evon Villeda Other Providers: Destinee Clark I. ; Syd Araujo Other Interventions: Discharge Summary Assessment (RN) Last Done: 04/03/22 11:42
== END 2022-04-03 14:28 | disposition home or self-care (01) ==
LOC: EDINP 13:52 → ED 13:52 → MERGE 17:28 → 2N 21:00